=== PATIENT | male | born 1950 | race Caucasian/White ===

== ENCOUNTER 2019-03-10 10:44 | Observation (INO) | payer BC, MEDICARE ==
[2019-03-10] MEDS ORDERED: ASPIRIN 81 MG PO STA (11:16)
[2019-03-10] MEDS ORDERED: NITROGLYCERIN OINT 1 INCH/GM PACKET TOPICAL STA (11:16)
--- NOTE | 2019-03-10 11:19 | ED ---
General Adult HPI - General Chief complaint: Chest Pain Stated complaint: Chest discomfort Time Seen by Provider: 03/10/19 10:52 Source: patient, family, RN notes reviewed Mode of arrival: wheelchair Limitations: no limitations - History of Present Illness Initial comments: Patient is a pleasant 68-year-old male presenting to the emergency Department wi th complaints of chest discomfort. Onset of symptoms was yesterday. Patient had several episodes in the morning and then a couple at nighttime. One was while cutting grass. Patient did have another proximally 3 episodes this morning. Episodes last proximal 3-4 minutes. Patient has burning in his chest with some radiation towards left arm. Patient has some associated sweating. No nausea. No dyspnea. Patient also has associated lightheadedness. Patient is currently symptom-free. No history of similar symptoms previously. - Related Data Home Medications Medication Instructions Recorded Confirmed Cholecalciferol [Vitamin D3 (25 1,000 unit PO DAILY 03/10/19 03/10/19 Mcg = 1000 Iu)] Cyanocobalamin (Vitamin B-12) 1,000 mcg PO DAILY 03/10/19 03/10/19 [Vitamin B-12] Ibuprofen [Motrin Ib] 400 mg PO Q6H PRN 03/10/19 03/10/19 Magnesium Oxide [Mag-Ox] 250 mg PO DAILY 03/10/19 03/10/19 [place]-3 Fatty Acids/Fish Oil [Fish 1 cap PO DAILY 03/10/19 03/10/19 Oil 1,000 mg Softgel] Testosterone Cypionate 100 mg IM MO 03/10/19 03/10/19 [Depo-Testosterone] Thyroid,Pork [Mr Teacher Thyroid] 90 mg PO DAILY 03/10/19 03/10/19 Allergies Allergy/AdvReac Type Severity Reaction Status Date / Time No Known Allergies Allergy Verified 03/10/19 10:58 Review of Systems ROS Statement: Those systems with pertinent positive or pertinent negative responses have been documented in the HPI. ROS Other: All systems not noted in ROS Statement are negative. Constitutional: Denies: fever Eyes: Denies: eye pain ENT: Denies: ear pain Respiratory: Denies: cough, dyspnea Cardiovascular: Reports: as per HPI Endocrine: Reports: fatigue Gastrointestinal: Denies: abdominal pain, nausea Genitourinary: Denies: dysuria Musculoskeletal: Denies: back pain Skin: Denies: rash Neurological: Denies: weakness Past Medical History Past Medical History: Thyroid Disorder History of Any Multi-Drug Resistant Organisms: None Reported Past Surgical History: No Surgical Hx Reported Past Psychological History: No Psychological Hx Reported Smoking Status: Former smoker Past Alcohol Use History: Occasional Past Drug Use History: None Reported General Exam Limitations: no limitations General appearance: alert, in no apparent distress Head exam: Present: atraumatic Eye exam: Present: normal appearance, PERRL, EOMI. Absent: nystagmus ENT exam: Present: normal oropharynx Neck exam: Present: normal inspection Respiratory exam: Present: normal lung sounds bilaterally. Absent: chest wall tenderness Cardiovascular Exam: Present: regular rate, normal rhythm Expanded Peripheral pulses: 2+: Radial (R), Radial (L), Posterior Tibialis (R), Posterior Tibialis (L), Dorsalis Pedis (R), Dorsalis Pedis (L) GI/Abdominal exam: Present: soft. Absent: tenderness Extremities exam: Present: normal inspection. Absent: pedal edema, calf tenderness Neurological exam: Present: alert, CN II-XII intact. Absent: motor sensory deficit Expanded Neurological exam: Present: protecting the airway Speech: Present: fluid speech Cranial nerves: EOM's Intact: Normal Motor strength exam: RUE: 5, LUE: 5, RLE: 5, LLE: 5 Eye Response: (4) open spontaneously Motor Response: (6) obeys commands Verbal Response: (5) oriented Psychiatric exam: Present: normal affect, normal mood Skin exam: Present: normal color Course Vital Signs 03/10/19 10:48 Temperature 97.5 F L Pulse Rate 74 Respiratory 18 Rate Blood Pressure 149/78 O2 Sat by Pulse 98 Oximetry EKG Findings - EKG Comments: EKG Findings:: Sinus bradycardia 55. GA 142. QRS 110. QT 390. QTC 373. Normal axis. Borderline LVH criteria. No acute ST change Medical Decision Making - Medical Decision Making Patient reevaluated and resting comfortably in bed. Patient and family updated on results and plan. Case was discussed in detail with Dr. Evans, covering for Dr. Garcia, who will admit. - Lab Data Result diagrams: 03/10/19 11:28 03/10/19 11:28 Lab Results 03/10/19 03/10/19 03/10/19 Range/Units 11:28 11:28 11:28 WBC 7.0 (3.8-10.6) k/uL RBC 5.55 (4.30-5.90) m/uL Hgb 15.8 (13.0-17.5) gm/dL Hct 49.3 (39.0-53.0) % MCV 88.9 (80.0-100.0) fL MCH 28.4 (25.0-35.0) pg MCHC 31.9 (31.0-37.0) g/dL RDW 13.4 (11.5-15.5) % Plt Count 185 (150-450) k/uL Neutrophils % 77 % Lymphocytes % 15 % Monocytes % 6 % Eosinophils % 1 % Basophils % 0 % Neutrophils # 5.4 (1.3-7.7) k/uL Lymphocytes # 1.1 (1.0-4.8) k/uL Monocytes # 0.4 (0-1.0) k/uL Eosinophils # 0.0 (0-0.7) k/uL Basophils # 0.0 (0-0.2) k/uL PT 10.2 (9.0-12.0) sec INR 0.9 (<1.2) APTT 24.1 (22.0-30.0) sec D-Dimer 0.35 (<0.60) mg/L FEU Sodium 140 (137-145) mmol/L Potassium 4.5 (3.5-5.1) mmol/L Chloride 108 H (98-107) mmol/L Carbon Dioxide 28 (22-30) mmol/L Anion Gap 4 mmol/L BUN 18 (9-20) mg/dL Creatinine 1.04 (0.66-1.25) mg/dL Est GFR (CKD-EPI)AfAm 86 (>60 ml/min/1.73 sqM) Est GFR (CKD-EPI)NonAf 74 (>60 ml/min/1.73 sqM) Glucose 96 (74-99) mg/dL Calcium 9.3 (8.4-10.2) mg/dL Magnesium 2.2 (1.6-2.3) mg/dL Total Bilirubin 0.8 (0.2-1.3) mg/dL AST 19 (17-59) U/L ALT 31 (21-72) U/L Alkaline Phosphatase 38 (38-126) U/L Creatine Kinase 122 (55-170) U/L Troponin I (0.000-0.034) ng/mL Total Protein 6.2 L (6.3-8.2) g/dL Albumin 3.9 (3.5-5.0) g/dL Amylase 48 (30-110) U/L Lipase 36 (23-300) U/L 03/10/19 Range/Units 11:28 WBC (3.8-10.6) k/uL RBC (4.30-5.90) m/uL Hgb (13.0-17.5) gm/dL Hct (39.0-53.0) % MCV (80.0-100.0) fL MCH (25.0-35.0) pg MCHC (31.0-37.0) g/dL RDW (11.5-15.5) % Plt Count (150-450) k/uL Neutrophils % % Lymphocytes % % Monocytes % % Eosinophils % % Basophils % % Neutrophils # (1.3-7.7) k/uL Lymphocytes # (1.0-4.8) k/uL Monocytes # (0-1.0) k/uL Eosinophils # (0-0.7) k/uL Basophils # (0-0.2) k/uL PT (9.0-12.0) sec INR (<1.2) APTT (22.0-30.0) sec D-Dimer (<0.60) mg/L FEU Sodium (137-145) mmol/L Potassium (3.5-5.1) mmol/L Chloride (98-107) mmol/L Carbon Dioxide (22-30) mmol/L Anion Gap mmol/L BUN (9-20) mg/dL Creatinine (0.66-1.25) mg/dL Est GFR (CKD-EPI)AfAm (>60 ml/min/1.73 sqM) Est GFR (CKD-EPI)NonAf (>60 ml/min/1.73 sqM) Glucose (74-99) mg/dL Calcium (8.4-10.2) mg/dL Magnesium (1.6-2.3) mg/dL Total Bilirubin (0.2-1.3) mg/dL AST (17-59) U/L ALT (21-72) U/L Alkaline Phosphatase (38-126) U/L Creatine Kinase (55-170) U/L Troponin I <0.012 (0.000-0.034) ng/mL Total Protein (6.3-8.2) g/dL Albumin (3.5-5.0) g/dL Amylase (30-110) U/L Lipase (23-300) U/L - Radiology Data Radiology results: image reviewed (X-ray shows no acute process) Disposition Clinical Impression: Chest pain Disposition: ADMITTED IP TO THIS HOSP Is patient prescribed a controlled substance at d/c from ED?: No Referrals: Jose Alberto Rai MD [Primary Care Provider] - 1-2 days Decision Time: 13:50
--- NOTE | 2019-03-10 11:48 | XR ---
EXAMINATION TYPE: XR chest 2V DATE OF EXAM: 03/10/2019 HISTORY: Chest Pain. REFERENCE: NONE. FINDINGS: Lungs are clear. Pleural space are clear. The heart is not enlarged. IMPRESSION: NORMAL CHEST.
[2019-03-10 11:55] LABS: Albumin 3.9 g/dL (3.5-5.0); Calcium 9.3 mg/dL (8.4-10.2); Magnesium 2.2 mg/dL (1.6-2.3); Potassium 4.5 mmol/L (3.5-5.1); Total Bilirubin 0.8 mg/dL (0.2-1.3); Total Protein 6.2 g/dL (6.3-8.2)
[2019-03-10 12:08] LABS: D-Dimer 0.35 mg/L FEU (<0.60); INR 0.9 (<1.2); Partial Thromboplastin Time 24.1 sec (22.0-30.0); Prothrombin Time 10.2 sec (9.0-12.0)
[2019-03-10 12:10] LABS: Basophils % (A) 0 %; Eosinophils % (A) 1 %; HCT 49.3 % (39.0-53.0); HGB 15.8 gm/dL (13.0-17.5); Lymphocytes # (A) 1.1 k/uL (1.0-4.8); Lymphocytes % (A) 15 %; MCH 28.4 pg (25.0-35.0); MCHC 31.9 g/dL (31.0-37.0); MCV 88.9 fL (80.0-100.0); Mean Platelet Volume 7.9; Monocytes # (A) 0.4 k/uL (0-1.0); Monocytes % (A) 6 %; Neutrophils # (A) 5.4 k/uL (1.3-7.7); Neutrophils % (A) 77 %; Platelet Count 185 k/uL (150-450); RBC 5.55 m/uL (4.30-5.90); RDW 13.4 % (11.5-15.5)
[2019-03-10] MEDS ORDERED: NITROGLYCERIN SL TABS 0.4 MG TAB SUBLINGUAL PRN (13:51)
[2019-03-10 15:34] VITALS: BMI 70.3
[2019-03-10] MEDS: NITROGLYCERIN OINT 1 INCH/GM PACKET TOPICAL SCH (17:35)
--- NOTE | 2019-03-10 18:17 | P.HPIM ---
History of Present Illness H&P Date: 03/10/19 Chief Complaint: Chest pain 68-year-old male with PMH of hypothyroidism presents to the ED for chest pain. Patient reports that heat sensation, described as "flushing" in his chest that has been ongoing for the past 2 days. 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 The sensation occasionally radiated to either the right or the left arm. Patient states that he was cutting grass later on that night when he experienced another episode before bed and again in the morning. Patient states that this feeling lasts for about 10- 15 seconds. Patient states that this sensation is related to lightheadedness as well. He denies any loss of consciousness. He denies any headaches, lower extremity edema, nausea, vomiting, fever, shortness of breath, palpitations, changes in urination or bowel habits. No changes in appetite or weight. Patient does report a cough that is dry. He denies any early family history of CO or CVA. Patient states that he quit smoking when he was 26 years old. He does admit to an occasional beer. In the ED, CBC and coagulation panel was negative. D-dimer was negative. CMP showed a chloride of 108. Troponin was less than 0.012, EKG showing sinus bradycardia. Amylase and lipase was negative. Chest x-ray was negative. Patient is admitted for chest pain, rule out acute coronary syndrome, cardiology consulted. Review of Systems Pertinent positives and negatives as discussed in HPI, a complete review of systems was performed and all other systems are negative. Past Medical History Past Medical History: Thyroid Disorder History of Any Multi-Drug Resistant Organisms: None Reported Past Surgical History: No Surgical Hx Reported Past Anesthesia/Blood Transfusion Reactions: No Reported Reaction Past Psychological History: No Psychological Hx Reported Smoking Status: Former smoker Past Alcohol Use History: Occasional Past Drug Use History: None Reported - Past Family History Father Family Medical History: Cancer Additional Family Medical History / Comment(s): colon CA Medications and Allergies Home Medications Medication Instructions Recorded Confirmed Type Cholecalciferol [Vitamin D3 (25 5,000 unit PO DAILY 03/10/19 03/10/19 History Mcg = 1000 Iu)] Cyanocobalamin (Vitamin B-12) 5,000 mcg PO DAILY 03/10/19 03/10/19 History [Vitamin B-12] Ibuprofen [Motrin Ib] 400 mg PO Q6H PRN 03/10/19 03/10/19 History Magnesium Oxide [Mag-Ox] 400 mg PO DAILY 03/10/19 03/10/19 History [place]-3 Fatty Acids/Fish Oil [Fish 1 cap PO DAILY 03/10/19 03/10/19 History Oil 1,000 mg Softgel] Testosterone Cypionate 100 mg IM MO 03/10/19 03/10/19 History [Depo-Testosterone] Thyroid,Pork [Gift Wrapper Thyroid] 90 mg PO DAILY 03/10/19 03/10/19 History Allergies Allergy/AdvReac Type Severity Reaction Status Date / Time No Known Allergies Allergy Verified 03/10/19 10:58 Physical Exam Vitals: Vital Signs Temp Pulse Pulse Resp BP BP Pulse Ox 03/10/19 17:15 96 03/10/19 15:04 97.7 F 56 L 16 132/64 97 03/10/19 14:00 54 L 14 122/70 03/10/19 13:30 57 L 14 114/68 95 03/10/19 13:00 65 16 126/74 96 03/10/19 12:30 58 L 16 131/75 03/10/19 12:00 59 L 14 131/72 96 03/10/19 10:48 97.5 F L 74 18 149/78 98 Intake and Output 03/10/19 03/10/19 03/10/19 06:59 14:59 22:59 Other: Voiding Method Toilet Weight 111.13 kg General: [non toxic], [no distress], [appears at stated age] Derm: [warm], [dry] Head: [atraumatic], [normocephalic], [symmetric] Eyes: [EOMI], [no lid lag], [anicteric sclera] Mouth: [no lip lesion], [mucus membranes moist] Cardiovascular: [S1S2 reg], [no murmur], [positive posterior tibial pulse bilateral], Lungs: [CTA bilateral], [no rhonchi, no rales] , [no accessory muscle use] Abdominal: [soft], [ nontender to palpation], [no guarding], [no appreciable organomegaly] Ext: [no gross muscle atrophy], [no edema], [no contractures] Neuro: [ CN II-XI grossly intact], [no focal neuro deficits] Psych: [Alert], [oriented], [appropriate affect] Results CBC & Chem 7: 03/10/19 11:28 03/10/19 11:28 Labs: Abnormal Lab Results - Last 24 Hours (Table) 03/10/19 Range/Units 11:28 Chloride 108 H (98-107) mmol/L Total Protein 6.2 L (6.3-8.2) g/dL Thrombosis Risk Factor Assmnt - Choose All That Apply Any of the Below Risk Factors Present?: Yes Each Factor Represents 1 point: Obesity (BMI >25) Each Risk Factor Represents 2 Points: Age 61-74 years Thrombosis Risk Factor Assessment Total Risk Factor Score: 3 Thrombosis Risk Factor Assessment Level: Moderate Risk Assessment and Plan Assessment: Assessment and Plan 1. Chest pain, rule out acute coronary syndrome 2. Hypothyroidism 1. Troponin less than 0.012, EKG showing sinus bradycardia. Chest x-ray negative. Risk factors include smoking. Plan: Trend troponin/EKG to rule out ACS. Follow-up follow lipid panel and echocardiogram. Follow-up cardiology consultation. Telemetry monitoring. 2. Plan: Continue Synthroid. DVT prophylaxis: [SCD] Discussed with: [Patient] Anticipated discharge: [1-2 days] Anticipated discharge place: [Home] A total of [45] minutes was spent on the care of this complex patient more than 50% of the time was spent in counseling and care coordination. Patient admitted for chest pain, rule out acute coronary syndrome. Cardiology was consulted. Likely DC tomorrow if workup is benign.
[2019-03-11] MEDS: NITROGLYCERIN OINT 1 INCH/GM PACKET TOPICAL SCH ×4 (01:12→16:40)
[2019-03-11] MEDS: THYROID, PORK 30 MG TAB PO SCH (06:15)
[2019-03-11 06:48] LABS: Cholesterol 190 mg/dL (<200); HDL Cholesterol 56 mg/dL (40-60); LDL Cholesterol,Calculated 116 mg/dL (0-99); Triglycerides 88 mg/dL (<150)
[2019-03-11] MEDS ORDERED: CYANOCOBALAMIN 500 MCG TAB PO SCH (09:00)
[2019-03-11] MEDS ORDERED: CHOLECALCIFEROL 1,000 UNIT TAB PO SCH (09:00)
--- NOTE | 2019-03-11 10:51 | P.PN ---
Subjective Progress Note Date: 03/11/19 Principal diagnosis: Chest pain Patient was seen and examined. No acute events overnight. Patient denies any chest pain, shortness of breath or palpitations. No symptoms since yesterday. He denies any dizziness. Plans for stress test tomorrow. Objective - Vital Signs Vital signs: Vital Signs Temp 98.2 F 03/11/19 08:00 Pulse 63 03/11/19 08:00 Resp 16 03/11/19 08:00 BP 109/65 03/11/19 08:00 Pulse Ox 96 03/11/19 08:00 Intake & Output 03/10/19 03/11/19 03/11/19 18:59 06:59 18:59 Weight 111.13 kg Other: Voiding Method Toilet Toilet Toilet # Voids 1 - Exam General: [non toxic], [no distress], [appears at stated age] Derm: [warm], [dry] Head: [atraumatic], [normocephalic], [symmetric] Eyes: [EOMI], [no lid lag], [anicteric sclera] Mouth: [no lip lesion], [mucus membranes moist] Cardiovascular: [S1S2 reg], [no murmur], [positive posterior tibial pulse bilateral], Lungs: [CTA bilateral], [no rhonchi, no rales] , [no accessory muscle use] Abdominal: [soft], [ nontender to palpation], [no guarding], [no appreciable organomegaly] Ext: [no gross muscle atrophy], [no edema], [no contractures] Neuro: [no focal neuro deficits] Psych: [Alert], [oriented], [appropriate affect] - Labs CBC & Chem 7: 03/10/19 11:28 03/10/19 11:28 Labs: Abnormal Lab Results - Last 24 Hours (Table) 03/10/19 03/11/19 Range/Units 11:28 06:12 Chloride 108 H (98-107) mmol/L Total Protein 6.2 L (6.3-8.2) g/dL LDL Cholesterol, Calc 116 H (0-99) mg/dL Assessment and Plan Assessment: Assessment and Plan 1. Chest pain, rule out acute coronary syndrome 2. Hypothyroidism 3. HLD 1. Troponin less than 0.012 x 3, EKG showing sinus bradycardia. Chest x-ray negative. Risk factors include smoking. Plan: ACS ruled out. Follow-up echocardiogram. Follow-up cardiology consultation. Telemetry monitoring. 2. Plan: Continue Synthroid. 3. LDL 116 on lipid panel. Plans: Low fat diet. Will consider Lipitor depending on results of stress test. Patient admitted for chest pain, rule out acute coronary syndrome. Cardiology was consulted. Plans for stress test tomorrow. Likely DC tomorrow depending on results.
[2019-03-11] MEDS: ASPIRIN 325 MG TAB PO SCH (11:13)
[2019-03-11] MEDS: CYANOCOBALAMIN 500 MCG TAB PO SCH (11:14)
[2019-03-11] MEDS: CHOLECALCIFEROL 1,000 UNIT TAB PO SCH (11:14)
[2019-03-11] MEDS: MAGNESIUM OXIDE 400 MG TAB PO SCH (11:14)
[2019-03-11] MEDS: NON-FORMULARY DRUG (Omega-3 Fatty Acids/Fish Oil [Fish Oil 1,000 Mg Softgel] 1 CAP) PO SCH (11:15)
--- NOTE | 2019-03-11 12:20 | CONS ---
CONSULTATION HISTORY: Mr. Grove is a 68-year-old gentleman who is seen for cardiac evaluation. The patient gives a history that for the last 24 hours to 48 hours he has been having a kind of funny sensation going over his chest and neck, associated this is some tingling and numbness. It lasts only for 30 seconds to a minute. Most of the time it occurs at rest, one time it occurred while he was cutting grass. He does not describe this as a pain. The patient is moderately active physically. Denies any exertional chest discomfort. There is no history of diabetes or hypertension. Patient does not smoke. EKG was normal. Patient had one episode of sensation after he was being admitted, at that time no abnormality was noted. PAST MEDICAL HISTORY: No history of any surgical history. SOCIAL HISTORY: Former smoker. MEDICATIONS: Include testosterone, thyroid, magnesium, ibuprofen p.r.n., vitamin B12 and vitamin D3. REVIEW OF THE SYSTEM: Otherwise unremarkable. FAMILY HISTORY: Family history is negative. PHYSICAL EXAMINATION: At present reveals a 68-year-old gentleman who does not appear to be in any acute distress. His blood pressure was 149/78 mmHg in the emergency room. The blood pressure now is 109/65 mmHg. Head/ENT examination is negative. Neck is supple. There is no increase in jugular venous pressure. Both the carotid pulses are felt. There is no bruit. Chest is symmetrical heart the PMI is not felt. First and second heart sounds are normal. There is no evidence of any murmur. Lungs are clinically clear to auscultation and percussion. Abdomen is negative. Extremities peripheral pulsations are 2+. DIAGNOSTIC STUDIES: EKG shows normal sinus rhythm without any acute ischemic changes. Cardiac enzymes are normal. Patient's LDL cholesterol is 116. IMPRESSION: This patient is having kind of funny and atypical sensation in the chest which he does not described as a pain. It may come and go, lasting only for 30 seconds or 1 minute. This is suggestive of atypical chest discomfort. EKGs and cardiac enzymes are normal. Patient does not have any other cardiac risk factors. In view of that, we will evaluate the patient with a stress Cardiolite study and echo and Doppler study. We will monitor him for any significant arrhythmias. MMODL / IJN: [id number] /
--- NOTE | 2019-03-11 13:14 | ECHOF ---
Referral Reason:chest pain MEASUREMENTS -------- HEIGHT: 188.0 cm WEIGHT: 111.1 kg BP: 109/65 IVSd: 1.2 cm (0.6 - 1.1) LVIDd: 4.9 cm (3.9 - 5.3) LVPWd: 1.2 cm (0.6 - 1.1) EDV(Teich): 111 ml IVSs: 1.6 cm LVIDs: 3.8 cm LVPWs: 1.8 cm %IVS Thck: 31 % ESV(Teich): 60 ml EF(Teich): 46 % %FS: 23 % SV(Teich): 51 ml LA Diam: 3.7 cm (2.7 - 3.8) RVIDd: 3.5 cm (< 3.3) IVC: 18.72 mm LALs A4C: 5.6 cm LAAs A4C: 18.8 cm LAESV A-L A4C: 54 ml LAESV MOD A4C: 51 ml LALs A2C: 5.4 cm LAAs A2C: 16.0 cm LAESV A-L A2C: 40 ml LAESV MOD A2C: 37 ml LAESV(A-L): 47 ml LAESV Index (A-L): 19.96 ml/m Ao Diam: 3.5 cm (2.0 - 3.7) AV Cusp: 2.4 cm (1.5 - 2.6) EPSS: 0.2 cm MV E [place]: 0.76 m/s MV DecT: 268 ms MV Dec [place]: 2.9 m/s MV A [place]: 0.70 m/s MV E/A Ratio: 1.10 MV PHT: 78 ms AV Vmax: 1.47 m/s AV maxP.69 mmHg TR Vmax: 2.45 m/s TR maxP.98 mmHg RAP: 5.00 mmHg RVSP: 28.98 mmHg MV EF SLOPE: 114.55 mm/s (70 - 150) MV EXCURSION: 16.31 mm (> 18.000) FINDINGS -------- Sinus rhythm. This was a technically good study. The left ventricular size is normal. There is borderline concentric left ventricular hypertrophy. Overall left ventricular systolic function is normal with, an EF between 60 - 65 %. The right ventricle is mildly enlarged. Normal LA size by volume 22+/-6 ml/m2. The right atrium is normal in size. Aneurysmal Interatrial septum. The aortic valve is trileaflet and appears structurally normal. The mitral valve is normal. Mild tricuspid regurgitation present. Right ventricular systolic pressure is normal at < 35 mmHg. There is no pulmonic regurgitation present. The aortic root size is normal. Normal inferior vena cava with normal inspiratory collapse consistent with estimated right atrial pre ssure of 5 mmHg. There is no pericardial effusion. CONCLUSIONS -------- 1. Sinus rhythm. 2. This was a technically good study. 3. The left ventricular size is normal. 4. There is borderline concentric left ventricular hypertrophy. 5. Overall left ventricular systolic function is normal with, an EF between 60 - 65 %. 6. The right ventricle is mildly enlarged. 7. Normal LA size by volume 22+/-6 ml/m2. 8. The right atrium is normal in size. 9. Aneurysmal Interatrial septum. 10. The aortic valve is trileaflet and appears structurally normal. 11. The mitral valve is normal. 12. Mild tricuspid regurgitation present. 13. Right ventricular systolic pressure is normal at < 35 mmHg. 14. There is no pulmonic regurgitation present. 15. The aortic root size is normal. 16. Normal inferior vena cava with normal inspiratory collapse consistent with estimated right atrial pressure of 5 mmHg. 17. There is no pericardial effusion. PRODUCE RUNNER: Stephany Mendez RDCS
[2019-03-12] MEDS: NITROGLYCERIN OINT 1 INCH/GM PACKET TOPICAL SCH ×3 (02:01→11:48)
[2019-03-12] MEDS: THYROID, PORK 30 MG TAB PO SCH (06:44)
--- NOTE | 2019-03-12 11:07 | NM ---
EXAMINATION TYPE: NM stress cardiolite complete DATE OF EXAM: 03/12/2019 COMPARISON: NONE HISTORY: Chest pain TECHNIQUE: After the intravenous administration of 10.2 mCi Tc 99m Sestamibi - Rest images obtained 45 minutes post injection. The patient exercised using a KARISHMA protocol and 1 minute prior to peak exercise was injected with 25.6 mCi Tc 99m Sestamibi - Stress images obtained 30 minutes post injecti on. FINDINGS: Targeted heart rate was achieved during performance of the study. Review of stress and rest SPECT lan ges demonstrates no reversible perfusion abnormality. Multiple defects seen on rest imaging does not persist on stress imaging and therefore appear to be artifactual. Gated analysis shows normal wall m otion with an estimated left ventricular ejection fraction of 44 %. TID is calculated within normal l imits at 0.80. IMPRESSION: No scintigraphic evidence for reversible ischemia. Abnormal estimated left ventricular ejection fract ion of 44%.
[2019-03-12 11:14] VITALS: BP 124/78; PULSE 63; RESP 16; TEMP 97.7
[2019-03-12] MEDS: CHOLECALCIFEROL 1,000 UNIT TAB PO SCH (11:44)
[2019-03-12] MEDS: ASPIRIN 325 MG TAB PO SCH (11:44)
[2019-03-12] MEDS: MAGNESIUM OXIDE 400 MG TAB PO SCH (11:44)
[2019-03-12] MEDS: NON-FORMULARY DRUG (Omega-3 Fatty Acids/Fish Oil [Fish Oil 1,000 Mg Softgel] 1 CAP) PO SCH (11:45)
[2019-03-12] MEDS: CYANOCOBALAMIN 500 MCG TAB PO SCH (11:45)
--- NOTE | 2019-03-12 13:16 | EST ---
EXERCISE STRESS DATE OF SERVICE: 03/12/2019 AGE: 68 SEX: Male HT: 6'2" WT: 245 pounds PROTOCOL: Cardiolite Paul STAGE: III DURATION OF EXERCISE: 9 minutes HEART RATE REST: 59 BLOOD PRESSURE REST: 131/81 MAXIMUM HEART RATE ACHIEVED: 131 MAXIMUM BLOOD PRESSURE: 195/94 85% MPHR: 130 100% MPHR: 153 METS: 10.2 INDICATIONS: Chest pain. CLINICAL INFORMATION: STRESS DATA: Pretesting physical examination showed a heart rate of 59. Pressure is 131/81 mmHg. Baseline EKG showed sinus mechanism. The patient exercised on treadmill according to Paul protocol for a total of 9 minutes and achieved 10.1 METs. Max heart rate was 131, which is about 86% of maximum predicted heart rate. Maximum blood pressure was 195/94 mmHg. Clinically the patient did not have any symptoms and the EKG did not show any significant ST or T-wave abnormalities concerning for ischemia. CONCLUSION: 1. Excellent exercise tolerance. 2. Normal EKG in response to exercise. 3. Please follow up on the Cardiolite portion on separate report from radiology department. MMODL / IJN: [id number] /
--- NOTE | 2019-03-12 14:28 | P.DS ---
Providers Date of admission: 03/10/19 13:51 Expected date of discharge: 03/12/19 Attending physician: Melodie Hill DO Consults: 03/10/19 13:51 Consult Physician Urgent Consulting Provider: Cecil Messer Consult Reason/Comments: chest discomfort Do you want consulting provider notified?: Yes Primary care physician: [facility] Course: 68-year-old male with PMH of hypothyroidism presents to the ED for chest pain. Patient reports that heat sensation, described as "flushing" in his chest that has been ongoing for the past 2 days. 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 The sensation occasionally radiated to either the right or the left arm. Patient states that he was cutting grass later on that night when he experienced another episode before bed and again in the morning. Patient states that this feeling lasts for about 10- 15 seconds. Patient states that this sensation is related to lightheadedness as well. He denies any loss of consciousness. He denies any headaches, lower extremity edema, nausea, vomiting, fever, shortness of breath, palpitations, changes in urination or bowel habits. No changes in appetite or weight. Patient does report a cough that is dry. He denies any early family history of OR or CVA. Patient states that he quit smoking when he was 26 years old. He does admit to an occasional beer. In the ED, CBC and coagulation panel was negative. D-dimer was negative. CMP showed a chloride of 108. Troponin was less than 0.012, EKG showing sinus bradycardia. Amylase and lipase was negative. Chest x-ray was negative. Patient is admitted for chest pain, rule out acute coronary syndrome, cardiology consulted. His troponins was less than 0.0123 with EKG showing sinus bradycardia. Chest x-ray was negative. ACS was ruled out. Cardiology was consulted and recommended echocardiogram and stress test. Echocardiogram showed borderline concentric hypertrophy with EF between 60 and 65%. Stress test was negative but showed an abnormal EF of 44%. His lipid panel was checked which showed an elevated LDL of 116. Patient was seen and examined prior to discharge. No acute events overnight. Patient reports resolution of his chest pain. He denies any chest pain, shortness of breath or palpitations. General: [non toxic], [no distress], [appears at stated age] Derm: [warm], [dry] Head: [atraumatic], [normocephalic], [symmetric] Eyes: [EOMI], [no lid lag], [anicteric sclera] Mouth: [no lip lesion], [mucus membranes moist] Cardiovascular: [S1S2 reg], [no murmur], [positive posterior tibial pulse bilateral], Lungs: [CTA bilateral], [no rhonchi, no rales] , [no accessory muscle use] Abdominal: [soft], [ nontender to palpation], [no guarding], [no appreciable organomegaly] Ext: [no gross muscle atrophy], [no edema], [no contractures] Neuro: [no focal neuro deficits] Psych: [Alert], [oriented], [appropriate affect] Assessment and Plan 1. Chest pain, rule out acute coronary syndrome 2. Hypothyroidism 3. HLD 1. Troponin less than 0.012 x 3, EKG showing sinus bradycardia. Chest x-ray negative. Risk factors include smoking. Echocardiogram shows EF 60-65% with borderline concentric LVH. Stress test is negative. Plan: ACS ruled out. Follow-up cardiology consultation. Telemetry monitoring. 2. Plan: Continue Synthroid. 3. LDL 116 on lipid panel. Plans: Low fat diet. Start aspirin and Lipitor on discharge. Patient will be discharged today. Pertinent Studies: Chest x-ray, echocardiogram, stress test. Patient Condition at Discharge: Stable Plan - Discharge Summary Discharge Rx Participant: No New Discharge Prescriptions: New Aspirin 81 mg PO DAILY #30 chewable Atorvastatin Calcium [Lipitor] 40 mg PO HS #30 tablet Continue [place]uddleston-3 Fatty Acids/Fish Oil [Fish Oil 1,000 mg Softgel] 1 cap PO DAILY Magnesium Oxide [Mag-Ox] 400 mg PO DAILY Cyanocobalamin (Vitamin B-12) [Vitamin B-12] 5,000 mcg PO DAILY Cholecalciferol [Vitamin D3 (25 Mcg = 1000 Iu)] 5,000 unit PO DAILY Thyroid,Pork [Nut Steamer Thyroid] 90 mg PO DAILY Testosterone Cypionate [Depo-Testosterone] 100 mg IM MO Discontinued Ibuprofen [Motrin Ib] 400 mg PO Q6H PRN PRN Reason: Pain Discharge Medication List Cholecalciferol [Vitamin D3 (25 Mcg = 1000 Iu)] 5,000 unit PO DAILY 03/10/19 [History] Cyanocobalamin (Vitamin B-12) [Vitamin B-12] 5,000 mcg PO DAILY 03/10/19 [History] Magnesium Oxide [Mag-Ox] 400 mg PO DAILY 03/10/19 [History] Huddleston-3 Fatty Acids/Fish Oil [Fish Oil 1,000 mg Softgel] 1 cap PO DAILY 03/10/19 [History] Testosterone Cypionate [Depo-Testosterone] 100 mg IM MO 03/10/19 [History] Thyroid,Pork [Nut Steamer Thyroid] 90 mg PO DAILY 03/10/19 [History] Aspirin 81 mg PO DAILY #30 chewable 03/12/19 [Rx] Atorvastatin Calcium [Lipitor] 40 mg PO HS #30 tablet 03/12/19 [Rx] Follow up Appointment(s)/Referral(s): Jose Alberto Rai MD [Primary Care Provider] - 1-2 days Cecil Messer MD [STAFF PHYSICIAN] - 04/16/19 2:45 pm Activity/Diet/Wound Care/Special Instructions: Diet: Heart healthy Follow-up with PCP within 1-2 days of discharge. Follow-up with cardiology within 1 week of discharge. Discharge Disposition: HOME SELF-CARE
== END 2019-03-12 14:58 | disposition home or self-care (01) ==
LOC: EC 10:44 → 1SOBS 13:51
PROVIDERS: ADMIT Internal Medicine; ATTEND Internal Medicine
DX: R07.89 Other chest pain (principal); R61 Generalized hyperhidrosis; R42 Dizziness and giddiness; R05 Cough; R20.2 Paresthesia of skin; R00.1 Bradycardia, unspecified; R20.0 Anesthesia of skin; E78.5 Hyperlipidemia, unspecified; E03.9 Hypothyroidism, unspecified; E66.9 Obesity, unspecified; Z68.31 Body mass index [BMI] 31.0-31.9, adult; Z79.890 Hormone replacement therapy; Z87.891 Personal history of nicotine dependence; Z80.0 Family history of malignant neoplasm of digestive organs
CPT/HCPCS: 99285; 36415; 94760; 93005; 93017; 93306; 85379; 80061; 80053; 82150; 82550; 83690; 83735; 84484; 85025; 85610; 85730; 71046; 78452; G0378 ×3; A9500

== ENCOUNTER → 2019-03-13 | Outpatient (CLI) | payer BC, MEDICARE ==
--- NOTE | 2019-03-13 22:26 | CONS ---
CONSULTATION REASON FOR EVALUATION: Sleep apnea. HISTORY: This is a 68-year-old male patient comes in accompanied by his due to concern of sleep apnea. The tells me that the patient snores very loud and snoring has been extensive over the past several years. The patient occasionally wakes himself up from snoring. He also has been noted to wake up gasping for air. He goes to bed at 10 p.m. His sleep is fragmented and occasionally wakes up because of pain in his knees. He wakes at various times including at 3 a.m., 5 a.m. and 7 a.m. Occasionally wakes up to use the bathroom and urinate. His Saint James score is 6. His weight has been stable over the past 1 years and he has lost some weight over the past 10 years. He sleeps on his back. He admits to having some fatigue and tiredness and limited sleepiness. He does not fall asleep while driving. Short distance back and forth to work as the patient works locally at [employer]. PAST MEDICAL HISTORY: Acid reflux, hypotestosteronism, hypothyroidism, cancer, hypertension. PAST SURGICAL HISTORY: Includes colonoscopy. DRUG ALLERGIES: Not known. OUTPATIENT MEDICATION LIST: 1. Testosterone injections. 2. Thyroid hormone replacement 90 mg p.o. daily. 3. Aspirin 81 mg p.o. daily. 4. Fish oil. 5. Vitamin B12. 6. Vitamin D3. 7. Magnesium. SOCIAL HISTORY: The patient is an ex-smoker, quit more than 25 years ago. No history of alcohol. No IV drug use. Social alcohol drinker. FAMILY HISTORY: Brother has obstructive sleep apnea. REVIEW OF SYSTEMS: Fourteen-point review of system was done. Positive findings are mentioned in history of present illness. No reported issues with drowsiness or falling asleep while driving or routine day-to-day activities. No seizure activity. No history of CVA. No history of fibromyalgia although has chronic arthritis. No difficulty breathing, cough, chest tightness or wheezing. No sinus headaches, no motor weakness. No history of any lung problems. No history of any chronic infections. No history of any ulceration or GI bleed. No nasal polyposis. No history of chronic anemia. No contractures of the lower extremities. PHYSICAL EXAMINATION: BP is 119/65, pulse 62, respirations 16, temperature 98.1, saturation 96% on room air. Neck size 17.5 inches, BMI 33.0 Saint James Score is at 6. Height is 5 feet 11 inches, weight is 242. GENERAL APPEARANCE: Calm comfortable. HEAD: Atraumatic, normocephalic. NECK: Supple. There is no JVD. No goiter or neck masses. Mallampati class IV. LUNGS: Clear to auscultation. HEART: Sounds regular rate and rhythm. Normal S1/S2. No murmurs. ABDOMEN: Soft, nontender. No organomegaly. EXTREMITIES: No edema. No cyanosis or clubbing. NEUROLOGIC: Alert and oriented x3. No focal neurological deficits. PSYCHIATRIC: Negative for anxiety or depression. SKIN: Negative for any wounds or ulcerations. IMPRESSION: 1. Loud snoring and witnessed apneas consistent with obstructive sleep apnea. 2. Chronic fatigue and some degree of sleepiness Saint James Score is at 6. 3. Hypotestosteronism on testosterone supplements. 4. Hypothyroidism. 5. Gastroesophageal reflux disease. PLAN: We will proceed with a screening polysomnogram to investigate the patient for sleep apnea and treat accordingly. MMODL / IJN: [id number] /
== END ==
LOC: SLEEP 14:14
PROVIDERS: ATTEND Internal Medicine Critical Care Medicine
DX: R06.83 Snoring (principal); R53.82 Chronic fatigue, unspecified; E29.1 Testicular hypofunction; E03.9 Hypothyroidism, unspecified; K21.9 Gastro-esophageal reflux disease without esophagitis; Z79.899 Other long term (current) drug therapy; Z79.82 Long term (current) use of aspirin; Z87.891 Personal history of nicotine dependence
CPT/HCPCS: 99211

== ENCOUNTER → 2019-07-31 | Outpatient (CLI) | payer BC, MEDICARE ==
--- NOTE | 2019-07-31 16:20 | PN ---
PROGRESS NOTE This is a 68-year-old male patient with severe obstructive sleep apnea, AHI of 34, currently on CPAP pressure at a pressure of 9 cm of water. The patient is using a Brevida nose piece. The patient is coming in for a compliancy check. I diagnosed this patient having obstructive sleep apnea approximately 2 months ago. His compliancy has steadily improved, and currently he is feeling great. He feels that he is much benefitting from the treatment and he is wearing the CPAP machine every night. He is waking up much more refreshed and alert during the day. Occasionally he takes naps after coming back from work and he would like to use it also when he is taking naps. In general he is averaging around 7.8 hours per night with a leak of L/minute and AHI is down to 2 while on treatment. His CPAP use for more than 4 hours is 100%. His weight has been stable. No other complaints otherwise for now. Treatment is successful. No nasal congestion or dryness. No heartburn, chest pain, shortness of breath overnight. Much more alert and awake during the day. Comorbidities include hypertension, hypothyroidism, hypotestosteronism. REVIEW OF SYSTEMS: Fourteen-point review of systems was done. Positive findings were all mentioned above. In general, the patient is feeling better; less sleepy, less tired, less fatigued. No episodes of falling asleep while driving. No chest pain. No angina. No palpitation. No heartburn. No fever or chills. No sore throat, sinus pain or any other complaints. PHYSICAL EXAMINATION: VITAL SIGNS: BP is 138/70, pulse 62, respirations 14, temperature 97.0. Saturation is 95% on room air. Weight is 242. [place] score is 3. Saturation is 97% on room air. GENERAL APPEARANCE: Calm, comfortable. HEAD: Atraumatic, normocephalic. NECK: Supple. There is no JVD. No goiter or neck masses. LUNGS: Clear to auscultation. HEART: Heart sounds are regular rate and rhythm. Normal S1, S2. No S3, S4. No murmurs. ABDOMEN: Soft, nontender. No organomegaly. EXTREMITIES: No edema. No cyanosis or clubbing. NEUROLOGIC: The patient is awake and alert. There are no focal neurological deficits. PSYCHIATRIC: Negative for anxiety or depression. SKIN is negative for any wounds or ulceration. IMPRESSION: 1. Severe symptomatic obstructive sleep apnea with an apnea/hypopnea index of 34, currently on CPAP pressure of 9. Treatment is successful and the patient is benefitting from the treatment. 2. Hypersomnia, improved. 3. Hypertension. 4. Hypothyroidism. 5. Low testosterone. PLAN: 1. Continue CPAP at a pressure of 9. 2. Keep the same mask interface, which is a Brevida nose piece. 3. Encourage weight loss. 4. Treatment is successful. Optimize sleep hygiene measures. Compliance data was checked. No need for any adjustments. See me back in a year's time, earlier if needed. Treatment is successful. MMODL / IJN: [id number] /
== END | disposition home or self-care (01) ==
LOC: SLEEP 14:29
PROVIDERS: ATTEND Internal Medicine Critical Care Medicine
DX: G47.33 Obstructive sleep apnea (adult) (pediatric) (principal); I10 Essential (primary) hypertension; E03.9 Hypothyroidism, unspecified; E29.1 Testicular hypofunction

== ENCOUNTER → 2020-07-29 | Outpatient (CLI) | payer BC, MEDICARE ==
--- NOTE | 2020-07-29 15:00 | P.PN ---
Subjective Progress Note Date: 07/29/20 I'm seeing this patient for a compliancy check and this is an annual check at the sleep center in regards to his obstructive sleep apnea. This is a 69-year-old male patient with established diagnosis of severe ALLY with an AHI of 34. The patient is coming in for an annual check. He is currently being tr eated with CPAP at a pressure of 9 cm of water. He continues to be extremely compliant and the patient is very content and happy with ongoing treatment. He has lost approximately 7 pounds. He used to weigh 242 and currently is down to 235 pounds. Based on the compliance data that was collected over the past 30 days, the patient has been utilizing his machine more than 4 hours 100% of the time. The patient has been averaging around 8.5 hours of CPAP use per night, and his leak is in the order of 29 L per minute and his AHI while on treatment is down to 1.9. No chest pain. No shortness of breath. No angina. No heartburn. No swelling lower extremities. No swallowing of air. He is using a Brevida nose mask. No complaints whatsoever. Objective - Vital Signs Vital signs: BP is 122/67, pulse is 60, respirations 16, temperature is 90.8, saturation 95%, height is 511, weight is 235, BMI 32.1 Mcclure score is at 5. - Exam The patient appeared well nourished and normally developed. Vital signs as documented. Head exam is unremarkable. No scleral icterus or corneal arcus noted. Neck is without jugular venous distension, thyromegaly, or carotid bruits. Carotid upstrokes are brisk bilaterally. Lungs are clear to auscultation and percussion. Cardiac exam reveals the PMI to be normally sized and situated. Rhythm is regular. First and second heart sounds normal. No murmurs, rubs or gallops. Abdominal exam reveals normal bowel sounds, no masses, no organomegaly and no aortic enlargement. Extremities are nonedematous and both femoral and pedal pulses are normal.Neurologically, the patient is awake and alert and the patient does not have any focal neurological deficit. Cranial nerves are essentially intact.Examination of the skin revealed no evidence of significant rashes, suspicious appearing nevi or other concerning lesions. Assessment and Plan Plan: 1 severe symptomatically ALLY with an AHI of 34. Patient is still being treated successfully with a pressure of 9 cm of water. Compliance data was checked. Clinically stable. No hypersomnia and sleepiness. He is tolerating the treatment. 2 hypersomnia, recovered 3 hypertension 4 hypothyroidism Plan Keep the same mask interface. Keep the same pressure setting which is a pressure maximum use of water The patient has already lost around 7 pounds and we will encourage further weight loss Continue monitoring the progress of his CPAP treatmentand the patient is compliant and there are no active issues for now. His supplies will be refilled. He'll see me back in a years time in follow-up.
== END | disposition home or self-care (01) ==
LOC: SLEEP 14:04
PROVIDERS: ATTEND Internal Medicine Critical Care Medicine
DX: G47.33 Obstructive sleep apnea (adult) (pediatric) (principal); I10 Essential (primary) hypertension; E03.9 Hypothyroidism, unspecified; Z99.89 Dependence on other enabling machines and devices

== ENCOUNTER → 2021-08-04 | Outpatient (CLI) | payer BC, MEDICARE ==
--- NOTE | 2021-08-04 19:48 | PN ---
PROGRESS NOTE Amado is a 70-year-old male patient coming to see me for a followup regarding his obstructive sleep apnea. He has a case of severe ALLY with an AHI of 34 and he has been doing well on a CPAP at a pressure of 9 cm of water. On today's evaluation, he is accompanied by his . He has no specific complaints. He continues to be compliant. I checked the machine and checked the compliancy data, and I am quite impressed by his numbers. He is wearing his machine every night and he is averaging around 7 hours of CPAP use per night with a leak of 2 L/minute. His AHI is down to 0.8 while on treatment. On today's evaluation, he is using the Brevida nose mask. I introduced the DreamWear nasal pillow for this patient as an alternative mask to be used, knowing that his leaks are slightly above normal. He has no other complaints otherwise. No heartburn. No angina. No palpitations. No shortness of breath. No other complaints otherwise. REVIEW OF SYSTEMS: Fourteen-point review of systems was done. Positive findings were all mentioned above in history of present illness. PHYSICAL EXAMINATION: BP is 150/75, pulse 63, respirations 16, temperature 97.7, saturation 97% on room air. GENERAL APPEARANCE: Calm, comfortable. No acute distress. HEAD: Atraumatic, normocephalic. NECK: Supple. No JVD. No goiter or neck masses. LUNGS: Clear to auscultation. Heart sounds are regular rate and rhythm. Normal S1, S2. No S3, S4. No murmurs. ABDOMEN: Soft, nontender. No organomegaly. EXTREMITIES: No edema. No cyanosis or clubbing. IMPRESSION: 1. Symptomatic obstructive sleep apnea. AHI of 34, currently on CPAP pressure of 9. Treatment is successful. 2. Hypersomnia, recovered; stable for now. No complaints. 3. Hypertension. 4. Hypothyroidism. PLAN: 1. Keep the same pressure setting, which will be a CPAP pressure of 9 cm. 2. Introduce the patient to DreamWear nasal pillows, which would be an alternative mask for his Brevida nose mask. 3. Treatment is successful. Compliance data was checked. Refills will be given periodically. No need for any further adjustments. Continue implementing good sleep hygiene measures. See me back in a year's time in followup, earlier if needed. MMODL / IJN: [id number] /
== END ==
LOC: SLEEP 14:08
PROVIDERS: ATTEND Internal Medicine Critical Care Medicine
DX: G47.33 Obstructive sleep apnea (adult) (pediatric) (principal); I10 Essential (primary) hypertension; E03.9 Hypothyroidism, unspecified; Z99.89 Dependence on other enabling machines and devices; Z87.891 Personal history of nicotine dependence

== ENCOUNTER → 2022-08-24 | Outpatient (CLI) | payer BC, MEDICARE ==
--- NOTE | 2022-08-24 15:51 | P.PN ---
Progress Note - Text Progress Note Date: 08/24/22 71-year-old male patient known history of obstructive sleep apnea coming in for an annual check. His last evaluation with me was on 08/04/2021. The patient is a case of severe ALLY with an AHI of 34 and he was being treated with a CPAP pressure of 9 cm of water. He is currently using a dreamware nasal pillows small size. This was offered to him during his last evaluation and this turned out to be an eczema mask interface for him. He is very compliant and he loves his machine. He is having no issues with daytime fatigue tiredness or sleepiness. His functionality during the day is excellent. His sleep is non- fragmented. Based on the compliance data that was collected on the machine over the past 30 days, the patient has been averaging around 7.1 hours of CPAP use per night with a leak of 12 L/m and his AHI is down to 0.7 indicating successful treatment. His weight has remained stable without any significant weight loss or weight gain. His current [place] score is only at 3 Ms. current vitals his blood pressure is 117/73 with a pulse of 88 and a respiration of 20 and a body weight is around 220 pounds The patient appeared well nourished and normally developed. Vital signs as documented. Head exam is unremarkable. No scleral icterus or corneal arcus noted. Neck is without jugular venous distension, thyromegaly, or carotid bruits. Carotid upstrokes are brisk bilaterally. Lungs are clear to auscultation and percussion. Cardiac exam reveals the PMI to be normally sized and situated. Rhythm is regular. First and second heart sounds normal. No murmurs, rubs or gallops. Abdominal exam reveals normal bowel sounds, no masses, no organomegaly and no aortic enlargement. Extremities are nonedematous and both femoral and pedal pulses are normal.Examination of the skin revealed no evidence of significant rashes, suspicious appearing nevi or other concerning lesions.Neurologically, the patient is awake and alert and the patient does not have any focal neurological deficit. Cranial nerves are essentially intact. Impression Obstructive sleep apnea, severe with an AHI of 34 being treated successfully with a CPAP pressure of 9 cm of water. No active issues for now. Is using a dreamware nose pillow Chronic hypersomnia, recovered while on CPAP therapy Obesity with a stable weight Hypertension Hypothyroidism Plan Refill all the supplies. Maintain same CPAP pressure. Treatment is successful. No need for any further adjustments. See back in one year.
== END ==
LOC: SLEEP 13:47
PROVIDERS: ATTEND Internal Medicine Critical Care Medicine
DX: Z53.9 Procedure and treatment not carried out, unspecified reason (principal)

== ENCOUNTER → 2023-08-09 | Outpatient (CLI) | payer BC, MEDICARE ==
--- NOTE | 2023-08-09 16:48 | P.PN ---
Progress Note - Text Progress Note Date: 08/09/23 On 08/09/2023, I'm seeing this patient in follow-up regarding his obstructive sleep apnea. The patient is known to me. The patient is known to have severe obstructive sleep apnea with an AHI of 34. The patient remains on a CPAP pressure of 9 cm of water. The patient is extremely well treated and he has no specific complaints. No hypersomnia or sleepiness during the day. He is compliant to the treatment. Is averaging about 7 hours of CPAP use per night. His compliancy for more than 4 hours is above 80%. His leak is in order of 35 L/m and his AHI is down to 0.4. He remains on a CPAP pressure of 9 cm of water. No significant weight gain. His weight remains stable. His [place] score is at 4. He has noted that the machine has become quite noisy. He wants to update his CPAP machine. I checked the machine and monitor his noisy and I was also told that it will turn up in the middle of the night and I thought it was reasonable to update his CPAP unit. He is committed to long-term CPAP therapy. Unfortunately, his machine is not fitting correctly. BP is 128/71, pulse is 55, respirations 16, temperature 97.6 and the patient has a pulse ox of 97% on room air oxygen. Weight is 208 Gen. appearance the patient is calm and comfortable not in acute distress The patient appeared well nourished and normally developed. Vital signs as documented. Head exam is unremarkable. No scleral icterus or corneal arcus noted. Neck is without jugular venous distension, thyromegaly, or carotid bruits. Carotid upstrokes are brisk bilaterally. Lungs are clear to auscultation and percussion. Cardiac exam reveals the PMI to be normally sized and situated. Rhythm is regular. First and second heart sounds normal. No murmurs, rubs or gallops. Abdominal exam reveals normal bowel sounds, no masses, no organomegaly and no aortic enlargement. Extremities are nonedematous and both femoral and pedal pulses are normal.Examination of the skin revealed no evidence of significant rashes, suspicious appearing nevi or other concerning lesions.Neurologically, the patient is awake and alert and the patient does not have any focal neurological deficit. Cranial nerves are essentially intact. Assessment Obstructive sleep apnea, severe with an AHI of 34. The patient is being treated with a CPAP pressure of 9 cm of water. The patient's machine is running correctly and his noisy and is affecting his sleep quality. The patient was update or repair his machine. Hypothyroidism Hypertension Plan I'm going to go ahead and refill all of his supplies. At same time, I'm going to order new CPAP unit for this patient in the same level of pressure which is 9 cm of water. If he is successful in obtaining a new machine, the patient will, seeing back in the office and 30-90 days for a compliancy check.
== END ==
LOC: 3 N SLEEP 14:21
PROVIDERS: ATTEND Internal Medicine Critical Care Medicine
DX: G47.33 Obstructive sleep apnea (adult) (pediatric) (principal); E03.9 Hypothyroidism, unspecified; I10 Essential (primary) hypertension; Z79.890 Hormone replacement therapy; Z79.899 Other long term (current) drug therapy; Z87.891 Personal history of nicotine dependence
CPT/HCPCS: 99212

== ENCOUNTER 2023-09-06 10:16 | Day surgery (SDC) | payer BC, MEDICARE ==
[2023-08-31 11:18] VITALS: BMI 26.6
[~2023-09-06 10:16] MED LIST: LACTATED RINGERS 1,000 ML IV SCH
[2023-09-06 11:02] VITALS: RESP 16; TEMP 97.2
[2023-09-06] MEDS ORDERED: PROPOFOL 10 MG/ML 20 ML VIAL IV ONE (11:04)
--- NOTE | 2023-09-06 11:20 | P.PCN ---
Date of Procedure: 09/06/23 Procedure(s) Performed: BRIEF HISTORY: Patient is a 73-year-old pleasant white male scheduled for an elective colonoscopy as a part of evaluation of chronic diarrhea for the last several months duration. PROCEDURE PERFORMED: Colonoscopy with biopsy. PREOPERATIVE DIAGNOSIS: Chronic diarrhea. IV sedation per Anesthesia. PROCEDURE: After informed consent was obtained, the patient, was brought into the endoscopy unit. IV sedation was administered by Anesthesia under continuous monitoring. Digital rectal examination was normal. Initially the Olympus CF-160 flexible video colonoscope was then inserted in the rectum, gradually advanced into the cecum without any difficulty. Careful examination was performed as the scope was gradually being withdrawn. Ileocecal valve and the appendiceal orifice were visualized and appeared normal. Prep was excellent. Mucosa of the cecum, ascending colon, transverse colon, descending colon, sigmoid colon, and rectum appeared normal. In the rectum there was a 3 mm polyp that was removed by cold biopsy. Another biopsies were done from ascending and descending colon to rule out microscopic/collagenous colitis Retroflexion was performed in the rectum and no lesions were seen. The patient tolerated the procedure well. IMPRESSION: 3 mm rectal polyp status post cold biopsy Rest of the colon appeared normal RECOMMENDATIONS: Findings of this examination were discussed with the patient as well as his family.. He was advised to follow with the biopsy results. Polyp in office in 2 weeks
[2023-09-06 12:05] VITALS: BP 112/60; PULSE 64
== END 2023-09-06 12:05 | disposition home or self-care (01) ==
LOC: ORWHC2ENDO 10:16
PROVIDERS: ATTEND Internal Medicine Gastroenterology
DX: K52.831 Collagenous colitis (principal); K62.1 Rectal polyp; E78.5 Hyperlipidemia, unspecified; G47.33 Obstructive sleep apnea (adult) (pediatric); K21.9 Gastro-esophageal reflux disease without esophagitis; F12.90 Cannabis use, unspecified, uncomplicated; K52.9 Noninfective gastroenteritis and colitis, unspecified; E07.9 Disorder of thyroid, unspecified; Z79.890 Hormone replacement therapy; Z79.899 Other long term (current) drug therapy
CPT/HCPCS: 88305; 88313; 45380; J2704